=== PATIENT | male | born 1965 | race Caucasian/White ===

== ENCOUNTER 2017-03-01 20:30 | Emergency (ER) | payer MEDICAID ==
[~2017-03-01] VITALS: Ht 170.2 cm; Wt 80.9 kg
[2017-03-01 20:31] VITALS: BP 127/80
[2017-03-01] MEDS ORDERED: DIAZEPAM 5 MG TABLET ONE (20:59)
[2017-03-01] MEDS ORDERED: DIAZEPAM 5 MG TABLET PO ONE (21:00)
[2017-03-01] MEDS ORDERED: KETOROLAC 30 MG/1 ML IM ONE (21:00)
[2017-03-01] MEDS ORDERED: KETOROLAC 30 MG/1 ML ONE (21:00)
== END 2017-03-01 22:23 | disposition home or self-care (01) ==
LOC: ED 22:17
DX: S39.012A Strain of muscle, fascia and tendon of lower back, initial encounter (principal); Z88.0 Allergy status to penicillin; X58.XXXA Exposure to other specified factors, initial encounter; Y93.89 Activity, other specified; Y99.8 Other external cause status; Y92.89 Other specified places as the place of occurrence of the external cause
CPT/HCPCS: 72110; 96372; 99284; J1885